=== PATIENT | female | born 1990 | race Caucasian/White ===

== ENCOUNTER 2016-12-02 10:04 | Outpatient (CLI) | payer BC, OTHER | END 2016-12-02 10:05 | disposition home or self-care (01) | LOC: BABIESSH 10:04 | PROVIDERS: ATTEND Obstetrics & Gynecology | DX: Z39.1 Encounter for care and examination of lactating mother (principal) ==

== ENCOUNTER 2016-12-14 12:57 | Outpatient (CLI) | payer BC, OTHER | END 2016-12-14 12:58 | disposition home or self-care (01) | LOC: BABIESSH 12:57 | PROVIDERS: ATTEND Obstetrics & Gynecology | DX: Z39.1 Encounter for care and examination of lactating mother (principal) ==

== ENCOUNTER 2016-12-17 10:00 | Day surgery (SDC) | payer BC, OTHER ==
--- NOTE | 2016-12-16 09:34 | HP ---
DATE OF CLINIC: 12/11/2016 RAFFI NUÑEZ : 1990 PLANNED PROCEDURE: Left Long Finger Cyst Excision DATE OF SURGERY: December 17, 2016 SURGEON: Kraig Glez M.D. HISTORY OF PRESENT ILLNESS Raffi Nuñez is a 25 year old female. * Medication list reviewed with patient allergy list reviewed with patient. * Tried Injections * Has not tried NSAIDS * Has not tried Physical Therapy This is a 25-year-old female previously seen for left long finger ganglion cyst over her metacarpophalangeal joint. She comes in today with some complaints of ongoing pain and it is actually worsening some. She had it aspirated in December and it recurred fairly rapidly. 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 More notably, however she is 26 weeks at this point. She has talked to Dr. Amin, who said that it would be okay with him if she had a surgery as long as she did not have a general anesthetic, but she is in today to talk about what we think as far as that goes. After discussion and review of treatment options, both operative and non-operative, she has elected to proceed with surgery and presents today preoperatively. PAST MEDICAL AND SURGICAL HISTORY: No changes to her past medical or surgical history except for the . CURRENT MEDICATION * *Supplement Miscellaneous 1 once a day Iron, 0 days, 0 refills * FLUoxetine HCl 20 MG Tablet 1 once a day 0 days, 0 refills * KP Multivitamins 28-0.8 MG Tablet 1 once a day 0 days, 0 refills * Vitamin B12 1000 mcg/ml Injectable as directed twice a month, 0 days, 0 refills PAST MEDICAL/SURGICAL HISTORY Reported: Medical: Renal history, Depression, and Osteoporosis. Surgical / Procedural: Prior surgery Endometriosis 2007, 2009, 2014, 2015 Kidneys 2015 Tonsils 1996. SOCIAL HISTORY Behavioral: Never smoked. Smoking status: Never smoker. Alcohol: Alcohol 1 drink / twice a week and alcohol use. Work: Occupation Registered Nurse. ALLERGIES * Sulfa Drugs Reaction: Skin Rashes/Hives REVIEW OF SYSTEMS No recent constitutional symptoms to include fevers and chills. No recent cardiovascular symptoms to include chest pain or palpitations. No recent respiratory symptoms to include shortness of breath or recent infections. PHYSICAL FINDINGS * Vitals taken 12/11/2016 02:35 pm BP-Sitting R 110/77 mmHg BP Cuff Size Regular Pulse Rate-Sitting 80 bpm Pulse Rhythm Regular Temp-Oral 97.7 F Height 67 in Weight 147 lbs Body Mass Index 23.0 kg/m2 Body Surface Area 1.77 m2 Pain Level 0 Neurological: Motor: * Dominant Hand = Right Hand. Patient is a well-developed, well-nourished female in no acute distress. They are awake, alert and conversant throughout the encounter. CARDIOVASCULAR: Intact peripheral pulses on bilateral upper extremities. No significant edema on inspection of bilateral upper extremities. NEUROLOGIC: Patient had intact coordinated composite motion of the bilateral upper extremities and sensation intact to light touch in all distributions of bilateral upper extremities. PSYCHIATRIC: Patient was oriented to person, place and time and displayed appropriate mood and affect during the encounter. SKIN: Exam of the skin on bilateral upper extremities showed no significant scars, lesions, rashes or masses. FOCUSED MUSCULOSKELETAL EXAM OF HER LEFT HAND: Shows palpable mucocyst over the metacarpophalangeal joint. It does translate some with the tendon so it is probably coming off of the tendon sheath. She gets some grade 1 triggering, but no grade 2 or 3. Sensation is intact distally and the hand is warm and well perfused. IMAGING Review of her previous x-rays from 2013 demonstrates no bony masses, normal alignment and no evidence of any erosive changes at any of her digits including the MCP joints. ASSESSMENT A 25-year-old female with mucocyst over the A2 cordelia of her left long finger. PLAN Left long finger cyst excision CARE TEAM Tracey Kenney MD [facility] Sj Amin MD Obstetrics & Gynecology SURGICAL CONSENT We have discussed surgical options including left long finger cyst excision and non-operative management. The patient was counseled in detail regarding the diagnosis, treatment options available, prognosis of each treatment option and the potential risks and complications. The risks of surgery include, but are not limited to, anesthetic , neurovascular complications, pulmonary embolism, deep vein thrombosis, wound dehiscence, failure of any or all of the discussed procedures, infection of the joint or surrounding soft tissue, need for revision surgery, chronic pain, limitations in activities of daily living, inability to return to work, and loss of normal range of motion or functional use of the extremity. There is the possibility of failure over time that may require additional operative or non-operative treatment. The patient acknowledged that there are a number of perioperative risks not mentioned here and would still like to proceed. The patient is aware of and understands these risks, and wishes to proceed with the proposed surgical procedure and other procedures as indicated at the time of surgery. We will have the patient see their PCP for a preoperative medical risk assessment. The preoperative instructions were reviewed with the patient and all questions were answered. PB/sg
[~2016-12-17 10:00] MED LIST: CEFAZOLIN SODIUM 2 GRAM PREMIX 100 ML IV PRN
[2016-12-17] MEDS ORDERED: IV START KIT ONE ×2 (10:03→10:28)
[2016-12-17] MEDS ORDERED: LACTATED RINGERS 1,000 ML ONE (10:03)
[2016-12-17] MEDS ORDERED: CEFAZOLIN SODIUM 2 GRAM PREMIX 100 ML IV ONE (10:03)
[2016-12-17] MEDS ORDERED: LIDOCAINE 1% (PRES FREE) 30 ML VIAL ONE (10:34)
[2016-12-17] MEDS ORDERED: BUPIVACAINE 0.5% (PRES FREE) 30 ML VIAL ONE (10:34)
[2016-12-17] MEDS ORDERED: FENTANYL 100 MCG/2 ML VIAL ONE (10:36)
[2016-12-17] MEDS ORDERED: MIDAZOLAM HCL 1 MG/ML 2ML VIAL ONE (10:36)
[2016-12-17] MEDS ORDERED: PROPOFOL 40 ML IV ONE (10:36)
[2016-12-17] MEDS ORDERED: KETOROLAC TROMETHAMINE 30 MG/ML 1 ML VIAL ONE (11:16)
[2016-12-17] MEDS ORDERED: ONDANSETRON 4 MG/2ML 2 ML VIAL ONE ×2 (11:16→12:01)
[2016-12-17] MEDS ORDERED: ONDANSETRON 4 MG/2ML 2 ML VIAL IV PRN (11:44)
[2016-12-17] MEDS ORDERED: ACETAMINOPHEN 325 MG TABLET PO PRN (11:44)
[2016-12-17] MEDS ORDERED: OXYCODONE/ACETAMINOPHEN 5/325 MG TABLET PO PRN (11:44)
[2016-12-17] MEDS ORDERED: LACTATED RINGERS 1,000 ML IV SCH (11:44)
[2016-12-17] MEDS ORDERED: DIPHENHYDRAMINE HCL 50 MG/1 ML VIAL IV PRN (11:44)
[2016-12-17] MEDS ORDERED: HYDROMORPHONE HCL 1 MG/ML SYRINGE IV PRN (11:44)
--- NOTE | 2016-12-17 11:49 | PCMBPN ---
Brief Post Op Note: Date of Procedure: 12/17/16 Start Time: 1100 Preoperative Diagnosis: 1. left long finger mucous cyst Postoperative Diagnosis: 1. Same Procedure: left long finger mucous cyst excision Surgeon: Kraig Glez MD Assist: Miracle Liu Anesthesia: Shaan Ocampo Findings: small cyst arising from flexor tendon sheath with mucinous contents Condition: stable to PACU Complications: none IV Fluids: 500 mLs of LR Urine Output: 0 mLs Estimated Blood Loss: 2 mLs Tourniquet Time: 25 min at 250 mm Hg Specimens: cyst Implants: none Drains: none Kraig Glez MD
[2016-12-17] MEDS ORDERED: SODIUM CHLORIDE 0.9% FLUSH 10 ML ONE (12:11)
--- NOTE | 2016-12-18 10:07 | OP ---
Fara Nuñez : 1990 DATE OF PROCEDURE: 12/17/2016 PREOPERATIVE DIAGNOSIS: Left long finger mucous cyst. POSTOPERATIVE DIAGNOSIS: Left long finger mucous cyst. PROCEDURE PERFORMED: Left long finger mucous cyst excision. SURGEON: Kraig Glez M.D. RUSSIAN RUBBER: Miracle Liu. ANESTHESIA: Tatiana Robles. SPECIMENT: Material sent to the laboratory was the cyst from the finger. ESTIMATED BLOOD LOSS: 2 mL. FLUID REPLACED: 500 mL of crystalloid. TOURNIQUET TIME: 25 minutes at 250 mmHg. IMPLANTS: None. DRAINS: None. INDICATIONS: This is a 26-year-old right handed dominant female who has had a longstanding mass over the volar surface of her left long finger about at the level of the metacarpophalangeal joint. It is tender on palpation and restricts her activities. It has failed the course of nonoperative measures. She is interested in excision for definitive diagnosis and management of her symptoms. Her physical exam and radiographic findings support the above. Risks, benefits, alternatives of excisional biopsy were discussed with the patient and she elected to proceed with surgery. Informed consent was obtained and documented on the chart. Patient was placed on the schedule at first available convenience. DESCRIPTION OF THE PROCEDURE: The patient was identified in the preoperative holding area where she was marked with an indelible marker by the operating surgeon. She underwent duran anesthesia by anesthesia provider. She was taken to the operating room where she was placed in the supine position. A well padded precalibrated non-sterile tourniquet was placed on her left upper arm. Operative timeout was performed confirmed by all members of the operative team. Her arm was elevated and exsanguinated using an esmarch bandage and the tourniquet was inflated to 250 mmHg. Duran block anesthesia was administered and then IV was removed from her left hand. She received perioperative antibiotics prior to inflating the tourniquet. She was then prepped and draped in the usual sterile fashion for surgery. An hockey stick shaped incision was created over the flexor tendon of her left long finger right at the level of the metacarpophalangeal joint. Dissection was done identifying the flexor tendon sheath and preserving the cordelia's. Mucous cyst was identified on the ulnar aspect of her flexor tendon and was dissected out using scissors and blunt dissection. This came free of the tendon and was removed in mass and sent to the lab for analysis. The wound was copiously irrigated with sterile saline and closed with 3-0 Nylon. Sterile dressing of Xeroform, fluffs, Webril, and an MARIE bandage was applied. The tourniquet was deflated. The drapes were removed. The patient was transferred to the stretcher and taken postoperatively to postanesthesia care in stable condition. There were no observed intraoperative complications during this procedure. JOB: [id number]
== END 2016-12-17 12:44 | disposition home or self-care (01) ==
LOC: SDC 10:00
PROVIDERS: ATTEND Orthopaedic Surgery
PROC: 0LB80ZZ Excision of Left Hand Tendon, Open Approach (ICD-10-PCS; principal; 2016-12-17)
DX: O26.892 Other specified pregnancy related conditions, second trimester (principal); M67.442 Ganglion, left hand; Z88.2 Allergy status to sulfonamides

== ENCOUNTER 2017-01-20 14:47 | Outpatient (CLI) | payer BC, OTHER | END 2017-01-20 14:48 | disposition home or self-care (01) | LOC: BABIESSH 14:47 | PROVIDERS: ATTEND Family Medicine | DX: Z39.1 Encounter for care and examination of lactating mother (principal) ==

== ENCOUNTER 2017-01-22 08:57 | Outpatient (CLI) | payer BC, OTHER | END 2017-01-22 08:58 | disposition home or self-care (01) | LOC: FBCOUT 08:57 → BABIESSH 08:58 | PROVIDERS: ATTEND Family Medicine | DX: Z39.1 Encounter for care and examination of lactating mother (principal) ==